=== PATIENT | female | born 1985 | race Caucasian/White ===

== ENCOUNTER → 2020-03-07 16:45 | Outpatient (BNVA) | payer MEDICAID, SELFPAY | PROVIDERS: PCP Family Medicine; Visit Provider Orthopaedic Surgery | DX: Z01.812 Encounter for preprocedural laboratory examination (principal); Z20.828 Contact with and (suspected) exposure to other viral communicable diseases | CPT/HCPCS: 87635 ==

== ENCOUNTER 2020-03-12 11:14 | Day surgery (SDC) | payer MEDICAID, SELFPAY ==
[2020-03-11 13:45] VITALS: BMI 47.6
[2020-03-12 11:52] VITALS: BP 118/86; PULSE 94; RESP 17; TEMP 36.4; O2SAT 97
--- NOTE | 2020-03-12 11:59 | ANES.PREANE2 ---
Pre-Anesthetic Assessment Pre-Anesthetic Assessment: Height/Weight: Height 1.5 m Weight 107.048 kg Temp Pulse Resp BP Pulse Ox 97.5 F L 94 17 118/86 97 03/12/20 11:52 03/12/20 11:52 03/12/20 11:52 03/12/20 11:52 03/12/20 11:52 Preop Diagnosis: right carpal tunnel syndrome Proposed Procedure: Operation Date: 03/12/20 12:50 Proposed Procedures p bilateral Carpal Tunnel Release 25918 g56.01 g56.02(Bilateral) - Xavier Madrigal MD Social: Social History: Tobacco and No alcohol Exam: Pre-Anes Outpt Exam: alert, oriented x 3, clear to auscultation bilaterally and regular rate & rhythm Airway: Submandibular: WNL Cervical ROM: Other (limited) MP: 2 Pulmonary: Pulmonary: None reported CV/HEM: CV/HEM: None reported : : None reported Hepatic: Hepatic: None reported GI: GI: None reported Metabolic: Metabolic: Morbid obesity Musc/skel: Musc/skel: None reported Neuropsych: Neuropsych: None reported Anesthetic Plan: ASA status: 3 Anesthesia: MAC and Regional (specify below) PFSH Anesthesia PFSH: Medical History No pertinent past psychiatric history Surgical History Hx of section Hx of dilation and curettage (~2012) Social History Smoking and tobacco status: current every day smoker cigarettes Packs smoked per day: 1 Years cigarettes smoked: 20 Second hand smoke exposure: No Alcohol intake: never Lives independently: No Household members: spouse and children Marital status: service: No Current occupational status: employed Current occupation: [employer] History of recent travel: No Current gender identity: Female Special elaine needs: No Agree to transfusion: Yes Data Anesthesia Cardiac Studies: No Data to Display
[2020-03-12] MEDS: sodium chloride 0.9% 1,000 ML 30 ML IV (12:25)
--- NOTE | 2020-03-12 13:38 | W.PM.OPSUD ---
Surgery/Procedure H&P Update DATE OF PROCEDURE: March 12, 2020 DATE H&P PERFORMED: 02/25/20 PREOP DIAGNOSIS: right carpal tunnel syndrome PLANNED PROCEDURE: Operation Date: 03/12/20 12:50 Proposed Procedures p bilateral Carpal Tunnel Release [id number] g56.01 g56.02(Bilateral) - Xavier Madrigal MD
[2020-03-12 14:50] VITALS: BP 165/104; PULSE 105; RESP 20; TEMP 36.1; O2SAT 99
[2020-03-12 14:55] VITALS: BP 140/107; PULSE 100; RESP 25; O2SAT 96
--- NOTE | 2020-03-12 14:55 | P.OP_ITS ---
Operative Report Date of procedure: March 12, 2020 Pre-op Diagnosis: Bilateral carpal tunnel syndrome Post-op diagnosis: same Post-op Findings: Same Procedure Done: Bilateral carpal tunnel releases Pathology: none sent Surgeon: Xavier Madrigal Anesthesia: General Estimated blood loss (mL): 10 Findings: No masses or space-occupying lesions were seen within either carpal tunnel Disposition: PACU Procedure: Patient was taken to the operating room and general anesthesia provided by the anesthesia service. She was prepped and draped with the right arm initially exposed. A 3 cm long incision was made in line with the fourth ray from the distal edge of the carpal tunnel extending proximally. The subcutaneous fat and palmar fascia was divided with a scalpel blade. Under loupe magnification the ulnar neurovascular bundle was identified distally. A hemostat could be passed under the transverse carpal ligament allowing the distal 25% to be divided. A slotted guide was then passed beneath the transverse carpal ligament and the middle 50% divided. Blunt scissors were then passed over the guide freeing the proximal ligament. The tourniquet was deflated. Hemostasis provided with electrocautery. Wound edges were infiltrated with 10 cc of a half percent Marcaine solution. Skin edges were reapproximated with 3-0 Prolene. During the process of closing the right arm the left arm was prepped and draped. A 3 cm long incision was made in line with the fourth ray from the distal edge of the carpal tunnel extending proximally. The subcutaneous fat and palmar fascia was divided with a scalpel blade. Under loupe magnification the ulnar neurovascular bundle was identified distally. A hemostat could be passed under the transverse carpal ligament allowing the distal 25% to be divided. A slotted guide was then passed beneath the transverse carpal ligament and the middle 50% divided. Blunt scissors were then passed over the guide freeing the proximal li gament. The tourniquet was deflated. Hemostasis provided with electrocautery. Wound edges were infiltrated with 10 cc of a half percent Marcaine solution. Skin edges were reapproximated with 3-0 Prolene. Xeroflo gauze and sterile dressings were applied to both hands.. The patient was taken to the recovery room in stable condition
[2020-03-12 15:00] VITALS: BP 156/92; PULSE 93; RESP 14; TEMP 36.2; O2SAT 96
[2020-03-12] MEDS: ondansetron 2 mg/ML SDV 2 mL 4 MG IVP (15:10)
[2020-03-12 15:15] VITALS: BP 136/93; PULSE 92; RESP 16; TEMP 36.6; O2SAT 98
[2020-03-12] MEDS: HYDROcodone-acetaminophen 5-325 mg Tablet 1 TAB PO (15:55)
--- NOTE | 2020-03-12 16:35 | ANE.PACU2 ---
Inpatient post-anesthesia follow up: Airway intact: Yes Vital signs: Temperature 98 F Pulse Rate 92 Respiratory Rate 16 Blood Pressure 136/93 Pulse Oximetry 98 Oxygen Delivery Me thod Room Air Oxygen Flow Rate 8 Fraction of Inspir ed Oxygen Hydration adequate: Yes Nausea and vomiting: No Pain level: 3 Mental status: Baseline
== END 2020-03-12 16:05 | disposition home or self-care (01) ==
PROVIDERS: PCP Family Medicine; Visit Provider Orthopaedic Surgery
PROC: (CPT 64721; principal; 2020-03-12 12:40)
DX: G56.03 Carpal tunnel syndrome, bilateral upper limbs (principal); E66.01 Morbid (severe) obesity due to excess calories; Z68.42 Body mass index [BMI] 45.0-49.9, adult; F17.210 Nicotine dependence, cigarettes, uncomplicated
CPT/HCPCS: 64721; 12345; J0690; J2405; J2704; J3010; J3490; J7030

== ENCOUNTER 2024-03-07 16:18 | Outpatient (CLI) | payer MEDICAID, SELFPAY ==
--- NOTE | 2024-03-07 16:20 | MM_ITS ---
WS: [id number] VIEWS: MLO and CC views both breasts. 3D digital tomosynthesis is also included in this exam. Comparison made with prior exam of 07/04/2014. Findings: There are scattered areas of fibroglandular density. No sign of suspicious mass, tumor calcification or architectural distortion. MM/MM scr BI tomosynthesis [id number] Impression: BI-RADS: 2 - Benign. FOLLOW-UP: 1 Year Follow-up This mammogram was also analyzed by the Computer Aided Detection System [employer].
== END 2024-03-07 16:19 | disposition home or self-care (01) ==
LOC: MOBLMAM 16:21
PROVIDERS: PCP Nurse Practitioner Family; Visit Provider Nurse Practitioner Family
DX: Z12.31 Encounter for screening mammogram for malignant neoplasm of breast (principal); R92.323 Mammographic fibroglandular density, bilateral breasts
CPT/HCPCS: 77063; 77067

== ENCOUNTER 2025-03-12 11:59 | Outpatient (CLI) | payer MEDICAID, SELFPAY ==
--- NOTE | 2025-03-12 12:00 | MM_ITS ---
WS: [id number] BILATERAL SCREENING DIGITAL TOMOSYNTHESIS MAMMOGRAM WITH CAD HISTORY: SCREENING COMPARISON: 03/07/2024, 07/04/2049 Bilateral CC and MLO views with tomosynthesis and synthetic mammography submitted. Computer aided detection analyzed. Breast composition: There are scattered areas of fibroglandular density. No suspicious masses, microcalcifications or architectural distortion. Benign scattered calcifications in each breast. MM/MM scr BI tomosynthesis [id number] IMPRESSION: BI-RADS: 2 - Benign. FOLLOW UP: 1 Year Follow-up
== END 2025-03-12 12:00 | disposition home or self-care (01) ==
LOC: MOBLMAM 12:00
PROVIDERS: PCP Nurse Practitioner Family; Visit Provider Nurse Practitioner Family
DX: Z12.31 Encounter for screening mammogram for malignant neoplasm of breast (principal); R92.323 Mammographic fibroglandular density, bilateral breasts; R92.1 Mammographic calcification found on diagnostic imaging of breast
CPT/HCPCS: 77063; 77067